=== PATIENT | female | born 1960 | race Caucasian/White ===

== ENCOUNTER 2020-11-19 13:17 | Emergency (ER) | payer BC | END 2020-11-19 14:20 | disposition home or self-care (01) | LOC: NAV ERS 13:17 | DX: S40.011A Contusion of right shoulder, initial encounter (principal); S40.021A Contusion of right upper arm, initial encounter; I10 Essential (primary) hypertension; F17.210 Nicotine dependence, cigarettes, uncomplicated; Z79.899 Other long term (current) drug therapy; W19.XXXA Unspecified fall, initial encounter ==

== ENCOUNTER 2022-11-27 13:18 | Outpatient (CLI) | payer BC ==
[2022-11-27 13:41] LABS: Hematocrit 45.9 % (36.0-47.0); Hemoglobin 15.4 g/dL (12.0-16.0)
[2022-11-27 14:13] LABS: Anion Gap 14 mmol/L (10-20); BUN (Urea Nitrogen) 9 mg/dL (9.8-20.1); Calc. Creatinine Clearance 0 mL/min (70-130); Calcium 9.8 mg/dL (7.8-10.44); Carbon Dioxide 25 mmol/L (22-29); Chloride 101 mmol/L (98-107); Estimated GFR 96; Glucose 101 mg/dL (70-105); Magnesium 1.9 mg/dL (1.6-2.6); Potassium 4.8 mmol/L (3.5-5.1); Sodium 135 mmol/L (136-145)
[2022-11-27 17:08] LABS: Thyroid Stimulating Hormone 0.7102 uIU/mL (0.35-4.94)
[2022-11-28 02:23] LABS: Vitamin D, 25 Hydroxy 35.2 ng/ml (> 30.0)
== END 2022-11-27 13:19 | disposition home or self-care (01) ==
LOC: NAV LAB 13:18
PROVIDERS: ATTEND Internal Medicine Nephrology
DX: E55.9 Vitamin D deficiency, unspecified (principal); N25.81 Secondary hyperparathyroidism of renal origin; N18.1 Chronic kidney disease, stage 1
CPT/HCPCS: 36415; 80048; 82306; 83735; 84100; 84443; 85014; 85018